=== PATIENT | female | born 1980 | race Caucasian/White ===

== ENCOUNTER → 2017-12-02 10:38 | Outpatient (CLI) | payer BC, SELFPAY ==
[2017-12-02 12:49] LABS: Anion Gap 8 (5-15); BUN 12 mg/dL (7-18); BUN/Creat Ratio 15.6 RATIO (10-20); Calcium,Total 8.8 mg/dL (8.5-10.1); Chloride 104 mmol/L (98-107); Creatinine, Serum 0.77 mg/dL (0.55-1.02); EST Glomerular Filtration Rate 90 mL/min (>60); Est Glom Filt Rate - Afr Amer 109 mL/min (>60); Glucose 79 mg/dL (74-106); Potassium 3.7 mmol/L (3.5-5.1); Sodium Level 137 mmol/L (136-145)
== END ==
PROVIDERS: Family Provider Family Medicine; PCP Family Medicine; Visit Provider Family Medicine
DX: E88.81 Metabolic syndrome and other insulin resistance (principal)
CPT/HCPCS: 36415; 80048